=== PATIENT | female | born 1975 | race Caucasian/White ===

== ENCOUNTER → 2021-04-11 | Emergency (ER) | payer OTHER ==
[~2021-04-11] VITALS: Ht 160 cm; Wt 66.2 kg
[~2021-04-11] MED LIST: ABILIFY2 MG; CRESTOR20 MG; FARXIGA10 MG; FOLIC ACID20 MG; HUMALOG100 UNIT/2; LEXAPRO20 MG; METFORMIN HCL1000 MG; PROTONIX40 MG; RESTORIL30 M1
== END | disposition left against medical advice (07) ==
LOC: ER 11:34
DX: K31.89 Other diseases of stomach and duodenum (principal)